=== PATIENT | male | born 1960 | race Caucasian/White ===

== ENCOUNTER 2016-05-27 15:04 | Emergency (ER) | payer SELFPAY ==
[~2016-05-27] VITALS: Ht 177.8 cm; Wt 95.7 kg
[2016-05-27 15:58] LABS: HEMATOCRIT 44.5 % (38.0-50.0); MCH 32.4 PG (29.0-34.0); MCHC 34.6 G/DL (30.0-36.0); MCV 93.7 FL (86-99); PLATELET COUNT 220 K/uL (156-360); RED BLOOD COUNT 4.75 M/uL (4.00-5.50); WHITE BLOOD COUNT 14.2 K/uL (4.1-10.2)
[2016-05-27 16:15] LABS: CHLORIDE 107 mEq/L (99-109); POTASSIUM 3.9 mEq/L (3.7-5.4); SODIUM 142 mEq/L (136-147)
[2016-05-27 16:17] LABS: GLUCOSE 115 mg/dL (70-99)
[2016-05-27 16:18] LABS: ANION GAP 18 MEQ/L (2-14)
[2016-05-27 16:20] LABS: SERUM ETHYL ALCOHOL < 10 mg/dL
[2016-05-27 16:21] LABS: UREA NITROGEN (BUN) 25 mg/dL (9-23)
[2016-05-27 16:32] LABS: GFR ESTIMATE (CALCULATED) 30 mL/min/
[2016-05-27 17:48] LABS: AMPHETAMINE NEGATIVE (500 ng/mL); BARBITURATES NEGATIVE (200 ng/mL); BENZODIAZEPINES NEGATIVE (150 ng/mL); COCAINE NEGATIVE (150 ng/mL); INTERNAL CONTROLS VALID? YES; METHADONE NEGATIVE (200 ng/mL); METHAMPHETAMINE NEGATIVE (500 ng/mL); OPIATES (MORPHINE) NEGATIVE (100 ng/mL); OXYCODONE NEGATIVE (100 ng/mL); PHENCYCLIDINE NEGATIVE (25 ng/mL); PROPOXYPHENE NEGATIVE (300 ng/mL); THC CANNABINOIDS NEGATIVE (50 ng/mL); TRICYCLIC ANTIDEPRESSANTS NEGATIVE (300 ng/mL)
[2016-05-27 18:37] VITALS: BP 150/99
== END 2016-05-27 18:37 | disposition home or self-care (01) ==
LOC: EME 15:04
DX: F32.9 Major depressive disorder, single episode, unspecified (principal); F10.10 Alcohol abuse, uncomplicated; N28.9 Disorder of kidney and ureter, unspecified
CPT/HCPCS: 80048; 85027; 90839; 99281; 99284; G0480